=== PATIENT | female | born 1995 | race Two or more races ===

== ENCOUNTER 2020-11-24 15:51 | Outpatient (CLI) | payer OTHER | END 2020-11-24 15:52 | disposition home or self-care (01) | LOC: DTY/OP 15:51 | PROVIDERS: ATTEND Surgery | DX: E66.01 Morbid (severe) obesity due to excess calories (principal); Z68.39 Body mass index [BMI] 39.0-39.9, adult | CPT/HCPCS: 97802 ==

== ENCOUNTER 2021-01-10 15:52 | Emergency (ER) | payer OTHER ==
[2021-01-10] MEDS ORDERED: Ketorolac Tromethamine 30 MG/ML VIAL ONE (18:56)
== END 2021-01-10 19:40 | disposition home or self-care (01) ==
LOC: ERS 15:52
DX: S76.912A Strain of unspecified muscles, fascia and tendons at thigh level, left thigh, initial encounter (principal); X58.XXXA Exposure to other specified factors, initial encounter
CPT/HCPCS: 96372; 99283; J1885

== ENCOUNTER 2021-01-21 17:00 | Inpatient (IN) | payer OTHER ==
[2021-03-15 11:29] VITALS: BMI 35.9
[2021-03-16] MEDS ORDERED: Midazolam HCl 2 mg/2 ml Vial ONE (06:34)
[2021-03-16] MEDS ORDERED: Fentanyl 100 MCG/2 ML VIAL ONE ×3 (06:34→10:21)
[2021-03-16] MEDS ORDERED: HYDROmorphone 2 MG/ML VIAL ONE (06:35)
[2021-03-16] MEDS ORDERED: SUGAMMADEX SODIUM 200 MG/2 ML VIAL ONE (06:35)
[2021-03-16] MEDS ORDERED: ceFAZolin 2 GM/DEX 5% 100 ML BAG ONE (06:59)
[2021-03-16] MEDS ORDERED: Heparin 5,000 UNITS/ML VIAL ONE (06:59)
[2021-03-16] MEDS ORDERED: Bupivacaine 0.25% HCL 30 ML VIAL ONE (07:03)
[2021-03-16] MEDS ORDERED: Lidocaine 1% w/Epinephrine 1:100K 20 ML VIAL ONE (07:03)
[2021-03-16] MEDS ORDERED: Lidocaine 1% PF 5 ML VIAL ONE (07:30)
[2021-03-16] MEDS ORDERED: Ondansetron PF 4 MG/2 ML Vial ONE ×2 (07:30→08:50)
[2021-03-16] MEDS ORDERED: Rocuronium Bromide 10 MG/ML (10ML VIAL) ONE (07:30)
[2021-03-16] MEDS ORDERED: PROPOFOL 200 MG/20 ML VIAL ONE (07:30)
[2021-03-16] MEDS ORDERED: Dexamethasone 20 MG/5 ML VIAL ONE (07:30)
[2021-03-16] MEDS ORDERED: Promethazine HCl 25 MG/ML VIAL IM PRN (08:35)
[2021-03-16] MEDS ORDERED: Ondansetron PF 4 MG/2 ML Vial IVP PRN (08:35)
[2021-03-16] MEDS ORDERED: Dextrose 50% Abboject 50 ML SYRINGE SLOW IVP PRN (08:35)
[2021-03-16] MEDS ORDERED: Dextrose 5% in Water 1,000 ML IV PRN (08:35)
[2021-03-16] MEDS ORDERED: diphenhydrAMINE 50 MG/ML VIAL IVP PRN ×2 (08:35→09:11)
[2021-03-16] MEDS ORDERED: Hydrocodone-Acetamin 15 ML UDCUP PO PRN (08:35)
[2021-03-16] MEDS ORDERED: hydrALAZINE 20 MG/ML VIAL SLOW IVP PRN (08:35)
[2021-03-16] MEDS ORDERED: Promethazine HCl 25 MG/ML VIAL ONE (08:50)
[2021-03-16] MEDS ORDERED: Zolpidem Tartrate 5 MG TAB PO PRN (09:11)
[2021-03-16] MEDS ORDERED: fentaNYL Citrate/PF 2,000 MCG in Sodium Chloride 0.9% 60 ML IV PRN (09:11)
[2021-03-16] MEDS ORDERED: diphenhydrAMINE 25 MG CAP PO PRN (09:11)
[2021-03-16] MEDS ORDERED: Ketorolac Tromethamine 30 MG/ML VIAL IVP PRN (09:11)
[2021-03-16] MEDS ORDERED: Naloxone HCl 0.4 mg/ml Vial IV PRN (09:11)
[2021-03-16] MEDS ORDERED: diphenhydrAMINE 50 MG/ML VIAL IM PRN (09:11)
[2021-03-16] MEDS ORDERED: Communication Order-Pharmacy FS SCH (09:15)
[2021-03-16] MEDS ORDERED: Ketorolac Tromethamine 30 MG/ML VIAL IVP SCH (12:00)
[2021-03-16] MEDS ORDERED: D5 1/2 NS w/20 mEq KCL 1,000 ML ONE (12:04)
[2021-03-16] MEDS: D5 1/2 NS w/20 mEq KCL 1,000 ML IV SCH ×2 (12:52→15:54)
[2021-03-16] MEDS: Pantoprazole 40 MG VIAL IVP SCH (13:52)
[2021-03-16] MEDS: CEFAZOLIN 2 GM in Sodium Chloride 0.9% 100 ML IVPB SCH ×2 (14:06→23:36)
[2021-03-16] MEDS ORDERED: FLU VACC QS2021-22(6MOS UP)/PF 60 MCG/0.5 ML SYRINGE IM ONE (14:15)
[2021-03-16] MEDS ORDERED: CEFAZOLIN 2 GM in Premix Bag 1 BAG IVPB SCH (15:00)
[2021-03-16] MEDS: Ondansetron PF 4 MG/2 ML Vial IVP PRN ×2 (16:41→23:36)
[2021-03-16] MEDS: Promethazine HCl 25 MG/ML VIAL IM PRN (18:41)
[2021-03-17] MEDS: D5 1/2 NS w/20 mEq KCL 1,000 ML IV SCH ×3 (01:22→15:42)
[2021-03-17] MEDS: Promethazine HCl 25 MG/ML VIAL IM PRN ×2 (04:36→12:19)
[2021-03-17 06:09] LABS: #Basophils 0.1 thou/uL (0.0-0.2); #Eosinphils 0.1 thou/uL (0.0-0.7); #Lymphocytes 1.7 thou/uL (1.20-3.40); %Basophils 0.7 % (0.0-1.0); %Eosinophils 1.2 % (0.0-10.0); %Lymphocytes 15.3 % (21.0-51.0); %Monocytes 9.1 % (0.0-10.0); %Neutrophils 73.8 % (42.0-75.0); Hemoglobin 12.3 g/dL (12.0-16.0); Mean Corpuscular HGB CONC 33.5 g/dL (32.0-36.0); Mean Corpuscular Hemoglobin 31.2 pg (27.0-31.0); Mean Corpuscular Volume 93.2 fL (78.0-98.0); Mean Platelet Volume 9.6 fL (7.4-10.4); Platelet Count 285 thou/uL (130-400); RBC Distribution Width 10.9 % (11.5-14.5); Red Blood Cell (RBC) Count 3.94 mill/uL (4.20-5.40); White Blood Cell (WBC) Count 10.8 thou/uL (4.8-10.8)
[2021-03-17 06:28] LABS: Anion Gap 14 mmol/L (10-20); BUN (Urea Nitrogen) 5 mg/dL (7.0-18.7); Calc. Creatinine Clearance 168 mL/min (70-130); Carbon Dioxide 20 mmol/L (22-29); Chloride 102 mmol/L (98-107); Glucose 104 mg/dL (70-105); Potassium 4.2 mmol/L (3.5-5.1); Sodium 132 mmol/L (136-145)
[2021-03-17] MEDS ORDERED: Hydrocodone-Acetamin 15 ML UDCUP PO PRN (07:34)
[2021-03-17] MEDS: Enoxaparin Sodium 40 MG/0.4 ML SYRINGE SC SCH (08:57)
[2021-03-17] MEDS: Pantoprazole 40 MG VIAL IVP SCH (08:58)
[2021-03-17] MEDS: Ondansetron PF 4 MG/2 ML Vial IVP PRN ×2 (08:59→21:03)
[2021-03-18] MEDS: D5 1/2 NS w/20 mEq KCL 1,000 ML IV SCH (00:27)
[2021-03-18] MEDS: Enoxaparin Sodium 40 MG/0.4 ML SYRINGE SC SCH (08:15)
[2021-03-18] MEDS: Pantoprazole 40 MG VIAL IVP SCH (08:20)
[2021-03-18 12:03] VITALS: BP 129/85; TEMP 98.4
== END 2021-03-18 12:28 | disposition home or self-care (01) | DRG 621 ==
LOC: SURG A 03-16 06:24 → EDSTATUS 03-16 17:00
PROVIDERS: ADMIT Surgery; ATTEND Surgery
PROC: 0DB64Z3 Excision of Stomach, Percutaneous Endoscopic Approach, Vertical (ICD-10-PCS; principal; 2021-03-16)
PROC: 0DJ68ZZ Inspection of Stomach, Via Natural or Artificial Opening Endoscopic (ICD-10-PCS; 2021-03-16)
DX: E66.01 Morbid (severe) obesity due to excess calories (principal); F41.9 Anxiety disorder, unspecified; F32.A Depression, unspecified; R13.10 Dysphagia, unspecified; Z90.49 Acquired absence of other specified parts of digestive tract; Z68.35 Body mass index [BMI] 35.0-35.9, adult
CPT/HCPCS: 36415; 80048; 85025; 88307; 88342; C9113; J0690; J1100; J1170; J1644; J1650; J2250; J2405; J2550; J2704; J3010; J3480; J3490; S0020

== ENCOUNTER 2021-03-11 16:36 | Outpatient (CLI) | payer OTHER ==
[2021-03-11 17:10] LABS: #Eosinphils 0.3 10x3/uL (0.0-0.5); #Monocytes 0.5 10x3/uL (0.0-1.1); #Neutrophils 2.8 10x3/uL (1.5-8.4); %Basophils 0.5 % (0.0-2.0); %Eosinophils 4.8 % (0.0-6.0); %Lymphocytes 43.1 % (18.0-47.0); %Monocytes 8.3 % (0.0-10.0); %Neutrophils 43.1 % (40.0-75.0); Hemoglobin 12.6 g/dL (12.0-15.5); Mean Corpuscular Hemoglobin 31.2 pg (27.0-33.0); Mean Corpuscular Volume 91.8 fl (81.6-98.3); Mean Platelet Volume 10.7 fl (7.4-10.4); Platelet Count 291 10x3/uL (150-450); RBC Distribution Width 11.6 % (11.5-14.5); Red Blood Cell (RBC) Count 4.04 10x6/uL (3.90-5.03); White Blood Cell (WBC) Count 6.5 10x3/uL (3.5-10.5)
[2021-03-11 17:23] LABS: BHCG - Serum Negative (NEGATIVE); Pregs Control Background? CLEAR/WHITE (CLR/WHITE); Pregs Control Bar Appear? YES (CONTROL BAR)
[2021-03-11 17:24] LABS: ALT (SGPT) 19 U/L (8-55); AST (SGOT) 19 U/L (5-34); Albumin 4.4 g/dL (3.5-5.0); Alkaline Phosphatase 68 U/L (40-110); Anion Gap 12 mmol/L (10-20); BUN (Urea Nitrogen) 11 mg/dL (7.0-18.7); Bilirubin, Total 0.3 mg/dL (0.2-1.2); Calc. Creatinine Clearance 0 mL/min (70-130); Calcium 9.2 mg/dL (7.8-10.44); Carbon Dioxide 24 mmol/L (22-29); Chloride 107 mmol/L (98-107); Globulin 3.7 g/dL (2.4-3.5); Glucose 93 mg/dL (70-105); Potassium 3.7 mmol/L (3.5-5.1); Protein, Total 8.1 g/dL (6.0-8.3); Sodium 139 mmol/L (136-145)
[2021-03-11 20:42] LABS: Hemoglobin A1c 5.3 % (4.0-6.0)
[2021-03-12 00:50] LABS: SARS-CoV-2 PCR by NAA Not Detected (NotDetected)
== END 2021-03-11 16:37 | disposition home or self-care (01) ==
LOC: LABBT 16:36
PROVIDERS: ATTEND Surgery
DX: Z01.818 Encounter for other preprocedural examination (principal); E66.01 Morbid (severe) obesity due to excess calories; Z20.822 Contact with and (suspected) exposure to COVID-19
CPT/HCPCS: 71046; 80053; 83036; 84703; 85025; 93005; 93010; U0003; U0005